=== PATIENT | female | born 1985 | race Caucasian/White ===

== ENCOUNTER 2017-04-28 19:41 | Emergency (ER) | payer OTHER ==
[~2017-04-28] VITALS: Ht 180.3 cm; Wt 116.3 kg
[~2017-04-28 19:41] MED LIST: ATARAX,VISTARIL50 MG PO; CELEXA40 MG PO; DILAUDID2 MG PO; KLONOPIN1 MG PO; PERCOCET 5/31 TABLET PO
[2017-04-28 20:17] LABS: HEMATOCRIT 36.9 % (36.0-46.0); MCH 30.1 PG (29.0-34.0); MCHC 34.1 G/DL (30.0-36.0); MCV 88.3 FL (83-99); PLATELET COUNT 353 K/uL (156-360); RBC DIS.WIDTH-SD 38.7 % (39-53); RED BLOOD COUNT 4.18 M/uL (3.80-5.20); WHITE BLOOD COUNT 7.3 K/uL (4.1-10.2)
[2017-04-28 20:33] LABS: ANION GAP 7 MEQ/L (2-14); CHLORIDE 109 MEQ/L (99-109); POTASSIUM 4.2 MEQ/L (3.7-5.4); SAMPLE HEMOLYSIS CHECK 0; SAMPLE ICTERIC CHECK 0; SAMPLE LIPEMIA CHECK 0; SODIUM 140 MEQ/L (136-147)
[2017-04-28 20:38] LABS: GFR ESTIMATE (CALCULATED) > 59 mL/min/; GLUCOSE 89 mg/dL (70-99); UREA NITROGEN (BUN) 12 mg/dL (9-23)
[2017-04-28 21:14] LABS: ADD MIUA? NO; BILIRUBIN NEGATIVE; BLOOD NEGATIVE; COLOR YELLOW ((YELLOW)); GLUCOSE (STRIP) NEGATIVE; KETONES NEGATIVE; LEUKOCYTES NEGATIVE; NITRITE NEGATIVE; PROTEIN (STRIP) NEGATIVE; SPECIFIC GRAVITY 1.012 (1.000-1.030); UCUL ADDED? NO; UROBILINOGEN 0.2 MG/DL (0.2-1.0)
[2017-04-28 23:12] LABS: DIRECT BILIRUBIN 0.1 mg/dL (0.0-0.3); TOTAL BILIRUBIN 0.3 MG/DL (0.0-1.0)
[2017-04-28 23:17] LABS: ALKALINE PHOSPHATASE 52 IU/L (3-129); LIPASE 26 U/L (1.0-51.0)
[2017-04-29] MEDS ORDERED: NORCO 5/3251 TABLET PO (01:26)
[2017-04-29] MEDS ORDERED: MOTRIN800 MG PO (01:26)
[2017-04-29 01:46] VITALS: BP 125/57
== END 2017-04-29 01:47 | disposition home or self-care (01) ==
LOC: EME 19:41
DX: R10.9 Unspecified abdominal pain (principal); F41.9 Anxiety disorder, unspecified; F32.9 Major depressive disorder, single episode, unspecified; Z87.442 Personal history of urinary calculi; F17.200 Nicotine dependence, unspecified, uncomplicated
CPT/HCPCS: 74176; 76856; 80048; 80076; 81003; 83690; 85027; 87086; 99281; 99284; J1885; J3010

== ENCOUNTER 2017-12-20 15:57 | Emergency (ER) | payer OTHER ==
[~2017-12-20] VITALS: Ht 154.9 cm; Wt 106.9 kg
[~2017-12-20 15:57] MED LIST changes: +MOTRIN800 MG PO; +NORCO 5/3251 TABLET PO
[2017-12-20] MEDS ORDERED: SKELAXIN800 MG PO (20:17)
[2017-12-20] MEDS ORDERED: MOTRIN600 MG PO (20:17)
[2017-12-20] MEDS ORDERED: TRAMADOL HCL50 MG PO (20:17)
[2017-12-20 20:24] VITALS: BP 107/56
== END 2017-12-20 20:25 | disposition home or self-care (01) ==
LOC: EME 15:57
DX: S39.012A Strain of muscle, fascia and tendon of lower back, initial encounter (principal); W10.9XXA Fall (on) (from) unspecified stairs and steps, initial encounter
CPT/HCPCS: 72110; 99281; 99284; J1885; J3010